=== PATIENT | female | born 1965 | race Caucasian/White ===

== ENCOUNTER 2020-11-11 23:39 | Emergency (ER) | payer MEDICARE ==
[~2020-11-11 23:39] MED LIST: AZITHROMYCIN250 MG PO; CERTAGEN1 EACH PO; CLARITIN10 MG PO; MEDROL 4MG DOSEP4 MG PO; PREDNISONE 20MG20 MG PO; VENTOLIN HFA IN18 GM INH; ZPAK PO
[2020-11-12 01:54] LABS: INFLUENZA A NAA NEGATIVE (NEGATIVE)
[2020-11-12 02:10] LABS: CORONAVIRUS 2019 SARS-COV-2 POSITIVE (NEGATIVE)
== END 2020-11-12 03:36 | disposition home or self-care (01) ==
LOC: FER 23:39
PROVIDERS: Emergency Medicine
DX: U07.1 COVID-19 (principal); Z88.0 Allergy status to penicillin; F17.210 Nicotine dependence, cigarettes, uncomplicated; Z85.72 Personal history of non-Hodgkin lymphomas
CPT/HCPCS: 99284; U0002

== ENCOUNTER 2020-11-24 15:42 | Emergency (ER) | payer MEDICARE ==
[2020-11-24 17:04] LABS: BASOPHIL 0.4 % (0-2); EOSINOPHIL 1.2 % (0-5); HGB 15.2 g/dl (12.5-16.0); LYMPHOCYTE 20.9 % (15-48); MCH 31.6 pg (25.0-31.0); MCHC 33.8 g/dL (32.0-36.0); MCV 93.6 fL (78.0-100.0); MONOCYTE 7.3 % (0-12); MPV 9.1 fL (6.0-9.5); NEUTROPHIL 69.4 % (41-80); NRBC 0; PLT 444 K/uL (150-400); RBC 4.81 M/uL (4.20-5.40); RDW 11.8 % (11.5-14.0); WBC 11.3 K/uL (4.0-10.5)
[2020-11-24 17:23] LABS: ALBUMIN 3.8 g/dL (3.4-5.0); BILIRUBIN - TOTAL 0.7 mg/dL (0.2-1.0); BUN/CREAT RATIO (CALC) 20.6 RATIO; CREATININE 0.68 mg/dL (0.51-0.95); GLOBULIN (CALCULATION) 3.6 g/dL; TOTAL PROTEIN 7.4 g/dL (6.4-8.2)
== END 2020-11-24 19:16 | disposition home or self-care (01) ==
LOC: FER 15:42
PROVIDERS: Emergency Medicine
DX: U07.1 COVID-19 (principal); F17.210 Nicotine dependence, cigarettes, uncomplicated; Z88.0 Allergy status to penicillin
CPT/HCPCS: 36415; 36600; 71045; 71275; 80053; 82803; 85025; 85379; Q9967

== ENCOUNTER 2020-12-21 13:58 | Emergency (ER) | payer MEDICAID ==
[2020-12-21] MEDS ORDERED: NAPROXEN500 MG PO (15:45)
[2020-12-21] MEDS ORDERED: BACLOFEN 10MG T10 MG PO (15:45)
== END 2020-12-21 15:55 | disposition home or self-care (01) ==
LOC: FER 13:58
DX: S20.213A Contusion of bilateral front wall of thorax, initial encounter (principal); F17.210 Nicotine dependence, cigarettes, uncomplicated; Z88.0 Allergy status to penicillin; W51.XXXA Accidental striking against or bumped into by another person, initial encounter
CPT/HCPCS: 71045; 96372; J1100; J1885